=== PATIENT | female | born 1955 | race Caucasian/White ===

== ENCOUNTER 2022-11-21 10:42 | Emergency (ER) | payer MEDICARE, OTHER ==
[2022-11-21] MEDS ORDERED: Sodium Chloride 0.9% 10 ML Syringe FLUSH PRN ×2 (11:00→13:25)
[2022-11-21] MEDS ORDERED: Sodium Chloride 0.9% 1,000 ML IV STA (11:01)
[2022-11-21] MEDS ORDERED: HYDROmorphone 0.5 MG/0.5 ML Syringe IVPUSH ONE (11:01)
[2022-11-21] MEDS ORDERED: Ondansetron 4 MG/2 ML SDV IVPUSH ONE (11:01)
[2022-11-21 12:03] LABS: ESTIMATED GFR 71 mL/min (>60)
[2022-11-21] MEDS ORDERED: Iopamidol 612 MG/ML 100 ML Bottle IVPUSH ONE (13:25)
== END 2022-11-21 14:30 | disposition home or self-care (01) ==
LOC: JD.ED 10:42
DX: K80.50 Calculus of bile duct without cholangitis or cholecystitis without obstruction (principal)
CPT/HCPCS: 36415; 74177; 76705; 80053; 83690; 85025; 86140; 96374; 96375; 99284; J1170; J2405; J3490; J7030; Q9967